=== PATIENT | female | born 1970 | race Caucasian/White ===

== ENCOUNTER 2016-09-18 19:57 | Emergency (ER) | payer OTHER ==
[~2016-09-18 19:57] MED LIST: ASA5GR PO; ASAB PO; BIOTIN5 MG PO; EXFORGE HC4 PO; HEMOCYTE324 MG PO; HYDROCHLOROT12.5 MG PO; IMDUR30 PO; KDUR10 PO; KLOR-CON M2020 MEQ PO; L20 PO; L40 PO; MOBIC15 MG PO; MULTIPLE VIT PO; NITROSTAT0.4 MG SL; NORV5 PO; VENTOLIN HFA INH; VITC500 PO; ZESTORETIC PO; ZOL50 PO; [UNRECOGNIZED DRUG - OTHER]
[2016-09-18 21:54] LABS: ER CBC TAT 0 Hrs 03 Mins; HEMATOCRIT 39.2 % (36.0-48.0); HEMOGLOBIN 13.8 g/dL (12.0-16.0); MEAN CORPUS HGB CONC 35.2 g/dL (32.0-36.0); MEAN CORPUSCULAR HEMOGLOB 29.9 pg (26.0-34.0); MEAN CORPUSCULAR VOLUME 84.8 fL (80-100); MEAN PLATELET VOLUME 10.1 fL (9.2-13.0); PLATELET COUNT 273 10/3/uL (150-400); RBC DISTRIBUTION WIDTH 12.8 % (12.0-16.0); RED CELL COUNT 4.62 10/6/uL (4.0-5.6); WHITE BLOOD CELLS 7.9 10/3/uL (4.5-10.5)
[2016-09-18 21:57] LABS: MANUAL DIFF YES %
[2016-09-18 22:08] LABS: INTERNATIONAL NORMAL RATI 1.1 UNITS (-); PROTIME (NOT ORD) 14.3 SEC (12.0-14.5)
[2016-09-18 22:10] LABS: A/G RATIO 0.9 (0.7-1.9); ALBUMIN 3.2 G/DL (3.5-5.0); ALKALINE PHOSPHATASE 65 U/L (45-117); BUN (BLOOD UREA NITROGEN) 12 MG/DL (6-23); CALCIUM, SERUM 8.3 MG/DL (8.5-10.4); CHLORIDE, SERUM 105 MMOL/L (96-112); CO2 (CARBON DIOXIDE) 28 MMOL/L (24-34); GFR AFRICAN AMERICAN 88 ML/MIN (>=60); GFR NON AFRICAN AMERICAN 76 ML/MIN (>=60); GLOBULIN 3.4 G/DL (2.5-4.1); GLUCOSE, SERUM 90 MG/DL (60-99); POTASSIUM, SERUM 3.7 MMOL/L (3.5-5.3); SGOT(AST) 14 U/L (5-40); SGPT(ALT) 26 U/L (5-65); SODIUM, SERUM 140 MMOL/L (135-148); TOTAL BILIRUBIN 0.4 MG/DL (0-1.2); TOTAL PROTEIN 6.6 G/DL (6.0-8.5)
[2016-09-18 22:27] LABS: EOSINOPHILS 2 %; EOSINOPHILS ABSOLUTE (CALC) 0.16 10/3/uL (0.0-0.53); ER DIFF TAT 0 Hrs 36 Mins; LYMPHOCYTES 11 %; LYMPHOCYTES ABSOLUTE (CALC) 0.87 10/3/uL (0.67-4.30); MONOCYTES 10 %; MONOCYTES ABSOLUTE (CALC) 0.79 10/3/uL (0.21-1.20); NEUTROPHILS ABSOLUTE (CALC) 6.08 10/3/uL (2.02-8.40); PLATELET ESTIMATE ADQ (ADEQUATE); RBC MORPHOLOGY NORM (NORMAL); SEGMENTED NEUTROPHIL (0) 77 %; TOTAL NUCLEATED CELLS 100; TOXIC GRANULATION SLT
== END 2016-09-18 21:44 | disposition home or self-care (01) ==
LOC: ER 19:57
PROVIDERS: Emergency Medicine
DX: I97.620 Postprocedural hemorrhage of a circulatory system organ or structure following other procedure (principal); I10 Essential (primary) hypertension; Z79.899 Other long term (current) drug therapy
CPT/HCPCS: 80053; 85025; 85610; 99284